=== PATIENT | female | born 1975 | race Hispanic/Latino ===

== ENCOUNTER → 2018-01-16 | Day surgery (SDC) | payer OTHER ==
[2018-01-15 11:52] LABS: BASOPHILS % 0.4 % (0.0-1.0); EOSINOPHILS # (AUTO) 0.1 (0.0-0.4); EOSINOPHILS % 1.7 % (0.0-6.0); HEMATOCRIT 41.6 % (34.2-44.1); HEMOGLOBIN 13.8 g/dL (12.0-16.0); LYMPHOCYTES # (AUTO) 1.7 (1.0-3.2); LYMPHOCYTES % 20.1 % (18.0-39.1); MEAN CORPUSCULAR HEMOGLOBIN 31.3 pg (28-32); MEAN CORPUSCULAR HGB CONC 33.2 g/dL (31-35); MEAN CORPUSCULAR VOLUME 94.3 fL (81-99); MONOCYTES # (AUTO) 0.5 (0.2-0.8); MONOCYTES % 5.8 % (4.4-11.3); NEUTROPHILS # (AUTO) 5.9 (2.1-6.9); NEUTROPHILS % 71.8 % (38.7-80.0); PLATELET COUNT 351 x10e3/uL (140-360); RED BLOOD COUNT 4.41 x10e6/uL (3.6-5.1); RED CELL DISTRIBUTION WIDTH 11.9 % (11.7-14.4)
[~2018-01-16] MED LIST: ACETAMINOPHEN 1000 MG/100 ML 100 ML IV ONE; BUPIVACAINE 0.25%/EPI 30ML SDV INJ ONE; DEXAMETHASONE SOD PHOS INJ 4 MG/ML VIAL ONE; FENTANYL CITRATE/PF 100MCG/2 ML INJ ONE; FERRIC SUBSULFATE 20-22% SOLUTION 8ML MC ONE; LIDOCAINE HCL 2% LOCAL INJ 5 ML SDV VIAL INJ ONE; METOCLOPRAMIDE HCL 10 MG/2ML VIAL ONE; METRONIDAZOLE 500MG/NS 100ML 100 ML IV ONE; MIDAZOLAM HCL 2 MG/2 ML VIAL ONE; OMEPRAZOLE40 MG; ONDANSETRON HCL INJ 2 MG/ML VIAL ONE; PROPOFOL IV EMULSION 10 MG/ML 20 ML VIAL ONE; SEVOFLURANE INHAL SOLN 250 ML PEN BTL ONE
[2018-01-16 14:30] VITALS: BP 110/88
--- NOTE | 2018-01-16 15:13 | Operative Report ---
DATE OF PROCEDURE: January 16, 2018 PREOPERATIVE DIAGNOSIS: Cervical dysplasia. POSTOPERATIVE DIAGNOSIS: Cervical dysplasia. PROCEDURE PERFORMED: Removal of intrauterine device as well as loop electrosurgical excision procedure of the cervix. ANESTHESIA: General. ESTIMATED BLOOD LOSS: Minimal. COMPLICATIONS: None. FLUIDS IN: As per anesthesia record. URINE OUT: As per anesthesia record. SPECIMENS: Cone biopsy of the cervix as well as endocervical curettings. 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 PROCEDURE: Prior to the procedure, the risks, benefits and alternatives were discussed and the patient agreed to proceed. Following anesthesia, the patient was placed in the appropriate position. Prepping and draping was performed, and a time out was done. A coated bivalved speculum was then placed in the vagina. The cervix was identified and noted to be normal in appearance. The transformation zone of the cervix was then excised using the loop electrosurgery device, and the endocervical canal at the top of the conization was then scraped with a Kevorkian curet in order to obtain endocervical curettings from above the level of the biopsy. The bases of the defects were then cauterized until hemostasis was achieved. There was no evidence of bleeding . Monsel solution was not necessary and therefore was not applied. The instruments were then removed from the patient's vagina. Instrument, needle and sponge counts were correct x2. The patient tolerated the procedure well and was transferred to the recovery room in stable condition. Job#: [id number]
== END | disposition home or self-care (01) ==
LOC: OR 10:22
PROVIDERS: ATTEND Obstetrics & Gynecology Obstetrics
DX: N87.0 Mild cervical dysplasia (principal); K21.9 Gastro-esophageal reflux disease without esophagitis; E66.01 Morbid (severe) obesity due to excess calories; Z01.812 Encounter for preprocedural laboratory examination; Z88.8 Allergy status to other drugs, medicaments and biological substances
CPT/HCPCS: 36415; 57522; 84702; 85025; 88305; 88307; 88342; J1100; J2001; J2250; J2405; J2765